=== PATIENT | male | born 1955 | race Caucasian/White ===

== ENCOUNTER 2021-07-17 09:28 | Emergency (ER) | payer BC ==
[~2021-07-17] VITALS: Ht 175.3 cm; Wt 103.0 kg
[~2021-07-17 09:28] MED LIST: Z.0.NORVASC10 MG PO; Z.0.WELLBUTRIN XL150 PO
[2021-07-17] MEDS ORDERED: CASIRIVIMAB/IMDEVIMAB 10 ML in SODIUM CHLORIDE 0.9% 100 ML IV ONE (09:30)
== END 2021-07-17 11:31 | disposition home or self-care (01) ==
LOC: ER 09:42
DX: R05 Cough (principal); U07.1 COVID-19
CPT/HCPCS: 99283

== ENCOUNTER 2025-01-23 03:53 | Emergency (ER) | payer BC ==
[~2025-01-23] VITALS: Ht 175.3 cm; Wt 102.1 kg
[2025-01-23 04:00] VITALS: TEMP 98.6
[2025-01-23 04:35] LABS: BASOPHILS # (AUTO) 0.1 (0.0-0.1); BASOPHILS % 0.4 % (0.0-1.0); EOSINOPHILS # (AUTO) 0.1 (0.0-0.4); EOSINOPHILS % 0.5 % (0.0-6.0); HEMATOCRIT 40.7 % (38.2-49.6); HEMOGLOBIN 14.2 g/dL (14.0-18.0); LYMPHOCYTES # (AUTO) 1.2 (1.0-3.2); LYMPHOCYTES % 10.2 % (18.0-39.1); MEAN CORPUSCULAR HEMOGLOBIN 31.2 pg (28-32); MEAN CORPUSCULAR HGB CONC 34.9 g/dL (31-35); MEAN CORPUSCULAR VOLUME 89.5 fL (81-99); MONOCYTES # (AUTO) 2.7 (0.2-0.8); MONOCYTES % 23.7 % (4.4-11.3); NEUTROPHILS # (AUTO) 7.4 (2.1-6.9); NEUTROPHILS % 64.6 % (38.7-80.0); PLATELET COUNT 527 x10e3/uL (140-360); RED BLOOD COUNT 4.55 x10e6/uL (4.3-5.7); RED CELL DISTRIBUTION WIDTH 13.2 % (11.7-14.4)
[2025-01-23] MEDS: SODIUM CHLORIDE 0.9% 1000ML 1,000 ML IV STA (04:43)
[2025-01-23 05:00] VITALS: PULSE 87; RESP 23
[2025-01-23 05:03] LABS: CORONAVIRUS COVID-19 AG NEGATIVE (NEGATIVE); INFLUENZA A AG NEGATIVE (NEGATIVE); INFLUENZA B AG NEGATIVE (NEGATIVE); STREPTOCOCCUS GRP A ANTIGEN POSITIVE (NEGATIVE)
[2025-01-23 05:07] LABS: ALBUMIN 3.9 g/dL (3.5-5.0); ALBUMIN/GLOBULIN RATIO 1.2 (0.8-2.0); ANION GAP 15.4 mmol/L (8-16); BILIRUBIN,TOTAL 1.6 mg/dL (0.2-1.2); CALCIUM 8.7 mg/dL (8.4-10.2); CREATININE, SERUM 1.16 mg/dL (0.72-1.25); TOTAL PROTEIN 7.2 g/dL (6.5-8.1)
[2025-01-23 05:13] LABS: TROPONIN I 0.048 ng/mL (0-0.300)
[2025-01-23 05:17] LABS: POTASSIUM 3.4 mmol/L (3.5-5.1)
[2025-01-23] MEDS ORDERED: VENTOLIN HFA18 GM INH (05:47)
[2025-01-23] MEDS ORDERED: AZITHROMYCIN250 MG PO (05:47)
[2025-01-23 05:48] VITALS: BP 124/86; PULSE 79; RESP 17; TEMP 98.4; O2SAT 97
[2025-01-23] MEDS: KETOROLAC TROMETHAMINE 30 MG/ML VIAL IV STA (05:48)
[2025-01-23 12:29] LABS: EOSINOPHILS % (MANUAL) 1 % (0-7); LYMPHOCYTES % (MANUAL) 7 % (19-48); MONOCYTES % (MANUAL) 11 % (3.4-9.0); NEUTROPHILS % (MANUAL) 80 % (40-74); REACTIVE LYMPHOCYTES 1
[2025-01-23 12:30] LABS: PLATELET ESTIMATE ADEQUATE; PLATELET MORPHOLOGY COMMENT FEW LARGE
== END 2025-01-23 05:58 | disposition home or self-care (01) ==
LOC: ER 03:58
DX: R06.00 Dyspnea, unspecified (principal); J02.0 Streptococcal pharyngitis; I48.91 Unspecified atrial fibrillation; R51.9 Headache, unspecified; I10 Essential (primary) hypertension; E11.65 Type 2 diabetes mellitus with hyperglycemia; Z11.52 Encounter for screening for COVID-19; R94.31 Abnormal electrocardiogram [ECG] [EKG]
CPT/HCPCS: 36415; 71045; 80053; 82550; 83518; 83690; 83880; 84484; 85025; 87428; 93005; 99284; J7030